=== PATIENT | female | born 1990 | race Caucasian/White ===

== ENCOUNTER 2018-04-29 21:33 | Emergency (ER) | payer OTHER ==
[~2018-04-29] VITALS: Ht 157.5 cm; Wt 115.7 kg
--- NOTE | 2018-04-29 21:54 | NUR ---
PT BIB SELF. COMPAINING OF MID STERNAL CHEST PAIN X 3O MIN. "I HAVE BEEN STRESSED OUT LATELY OVER SCHOOL EXAMS." RADIATES TO RIGHT ARM PIT. INCREASES WITH INSPIRATION. "CRAMPING" TYPE PAIN. 8/10 PAIN SCALE. PT AA/OX4. NO S/S SOB. STABLE CONDITION. VSS. AMBULATED TO HOSPITAL BED WITH STABLE CONDITION. AWAITING EVAL/ ORDERS.
[2018-04-29 23:41] VITALS: BP 121/88
== END 2018-04-29 23:53 | disposition home or self-care (01) ==
LOC: ER 21:40
DX: M94.0 Chondrocostal junction syndrome [Tietze] (principal)
CPT/HCPCS: 71045; 93005; 99284; A4606; Z7610